=== PATIENT | female | born 1980 | race American Indian/Alaskan Native ===

== ENCOUNTER 2017-06-10 07:08 | Day surgery (SDC) | payer BC, OTHER ==
[2017-06-06 10:54] LABS: Hematocrit 25.9 % (30.3-42.9); Hemoglobin 8.2 gm/dl (10.1-14.3); Mean Corpuscular HGB Conc 32 % (30-34); Platelet Count 302 K/mm3 (140-440); Red Blood Count 4.09 M/mm3 (3.65-5.03); White Blood Count 5.2 K/mm3 (4.5-11.0)
[2017-06-06 11:58] LABS: Mean Corpuscular Hemoglobin 20 pg (28-32); Mean Corpuscular Volume 63 fl (79-97); Red Cell Distribution Width 26.2 % (13.2-15.2)
[2017-06-06 14:02] LABS: Blastocytes % (Manual) 0 %
[2017-06-06 14:04] LABS: Anisocytosis 1+; Hypochromasia 3+; Polychromasia Few; Target Cells Few
[2017-06-06 14:05] LABS: Diff Status Complete; Platelet Estimate Consistent w Auto
--- NOTE | 2017-06-10 08:25 | Short Stay Summary ---
Short Stay Documentation Date of service: 06/10/17 Narrative H&P: C/O: Heavy and irregular cycles 2-3 years 36-year-old G0 is here for D&C. She still continues to have heavy and irregular cycles. She continues to take Provera courses which only helps occasionally. Pelvic ultrasound obtained 04/2017 shows a 9 cm uterus with no structural issues. There is a question of an endometrial polyp noted no other abnormalities. Her cycle in March and lasted 14 days and was heavy. Note her past medical history of admission to [facility] in June 2015. She received 3 units packed red blood cells. Ultrasound showed possible numerous polyps. Gynhx: As above. She has a history of LGSIL with negative high-risk HPV 16 and 18. She scheduled for repeat serology and cytology in one year Medhx:None Sughx:None Meds:M/vitamins ALL:NKDA Fshx:Single, no smoking On exam, she is a morbidly obese Normal ext genitalia SSE no obvious lesions or pathology Minimal bleeding noted at this time A: AUB/IMB & HMB-P P: -Patient and I discussed her sonogram in detail. We reviewed our options, I advised we proceed with D&C hysteroscopy with possible polypectomy using my myosure. We reviewed the risk of the procedure in detail and all her questions were answered. -Proceed to the OR for D&C hysteroscopy once available, she has signed consent - History Past Medical History: other (Severe anemia requiring 3 units PRBC in 06/2015) Past Surgical History: No surgical history Social history: single, full code, no smoking, no alcohol abuse, no prescription drug abuse, no IV drug use - Allergies and Medications Current Medications: Allergies No Known Allergies Allergy (Verified 06/04/17 16:50) Home Medications Medication Instructions Recorded Confirmed Last Taken Type Multivit, Iron, Min #4, FA 1 each PO DAILY #30 tab.chew 07/01/15 06/04/17 Unknown Rx [Multichew Chewable Tablet] medroxyPROGESTERone ACETATE 10 mg PO QDAY #20 tablet 07/01/15 06/04/17 Unknown Rx [Provera] Ferrous Sulfate [Feosol 325 MG tab] 325 mg PO TID 06/04/17 06/04/17 Unknown History - Physical exam General appearance: no acute distress, obese Lungs: Clear to auscultation, Normal air movement Heart: Regular rate, Normal S1, Normal S2 Gastrointestinal: normal, no tenderness, no distended, no masses, no guarding, obese Female Genitourinary: normal Extremities: no ischemia Neurological: Strength at 5/5 X4 ext - Brief post op/procedure progress note Date of procedure: 06/10/17 Pre-op diagnosis: AUB/HMB-P Post-op diagnosis: same Procedure: D&C hysteroscopy with myosure Anesthesia: GETA Findings: Nulliparoes OS, Endometrial polyps Surgeon: JHONATAN ALBERTO Estimated blood loss: minimal Pathology: list (endometrial polyps, endometrial curettings) Specimen disposition: to lab Condition: stable (minimal blood loss, fluid deficit 100 mL) - Hospital course Hospital course: Uncomplicated postoperative course, she is discharged home from PACU - Disposition Condition at discharge: Good Disposition: DC-01 TO HOME OR SELFCARE Short Stay Discharge Plan Activity: advance as tolerated, other (pelvic rest 2 weeks) Weight Bearing Status: Weight Bear as Tolerated Diet: regular Follow up with: PRIMARY MD WILFREDO [Primary Care Provider] - 7 Days JHONATAN ALBERTO MD [Staff Physician] - 7 Days
[2017-06-10] MEDS ORDERED: DILAUDID IV PRN (08:38)
[2017-06-10] MEDS ORDERED: ZOFRAN IV PRN ×3 (08:38→11:49)
--- NOTE | 2017-06-10 08:57 | Anesthesia Consultation ---
Anesthesia Consult and Med Hx Date of service: 06/10/17 - Airway Anesthetic Teeth Evaluation: Good ROM Head & Neck: Adequate Mental/Hyoid Distance: Adequate Mallampati Class: Class II Intubation Access Assessment: Probably Good - Pulmonary Exam CTA: Yes - Cardiac Exam Cardiac Exam: RRR - Pre-Operative Health Status ASA Pre-Surgery Classification: ASA2 Proposed Anesthetic Plan: General - Pulmonary Hx Smoking: No Hx Asthma: No SOB: No COPD: No Hx Pneumonia: No Hx Sleep Apnea: No - Cardiovascular System Hx Hypertension: No Hx Coronary Artery Disease: No Hx Heart Attack/AMI: No Hx Angina: No Hx Percutaneous Transluminal Coronary Angioplasty (PTCA): No Hx Pacemaker: No Hx Internal Defibrillator: No Hx Valvular Heart Disease: No Hx Heart Murmur: No Hx Peripheral Vascular Disease: No - Central Nervous System Hx Back Pain: No Hx Psychiatric Problems: No - Gastrointestinal Hx Ulcer: No - Endocrine Hx Renal Disease: No Hx End Stage Renal Disease: No Hx Cirrhosis: No Hx Liver Disease: No Hx Hypothyroidism: No Hx Hyperthyroidism: No - Hematic Hx Anemia: Yes Hx Sickle Cell Disease: No - Other Systems Hx Alcohol Use: Yes (occas) Hx Substance Use: No Hx Cancer: No Hx Obesity: Yes (BMI > 30)
--- NOTE | 2017-06-10 08:57 | Anesthesia Day of Surgery ---
Anesthesia Day of Surgery - Day of Surgery Patient Examined: Yes Patient H&P Reviewed: Yes Patient is NPO: Yes
[2017-06-10] MEDS ORDERED: PEPCID PO NR (09:00)
[2017-06-10] MEDS ORDERED: VERSED IV NR (09:00)
[2017-06-10] MEDS ORDERED: NACL 0.9% 1000 ML 1,000 ML IV SCH (09:00)
[2017-06-10] MEDS ORDERED: NACL BACTERIOSTATIC INFILTRATI ONE (09:01)
[2017-06-10] MEDS ORDERED: DIPRIVAN 10 MG/ML IV ONE (09:33)
[2017-06-10] MEDS ORDERED: DILAUDID ONE ×2 (09:33→10:19)
[2017-06-10] MEDS ORDERED: XYLOCAINE MPF 2% ONE (09:33)
[2017-06-10] MEDS ORDERED: TORADOL ONE (09:38)
[2017-06-10] MEDS ORDERED: ZOFRAN ONE ×2 (09:38→11:49)
[2017-06-10] MEDS ORDERED: DECADRON ONE (09:38)
[2017-06-10] MEDS ORDERED: SILVER NITRATE TP ONE ×2 (10:22→10:53)
[2017-06-10] MEDS ORDERED: TYLENOL PO PRN (10:47)
[2017-06-10] MEDS ORDERED: NORCO 5/325 PO PRN (10:47)
[2017-06-10] MEDS ORDERED: MOTRIN PO PRN (10:47)
--- NOTE | 2017-06-10 10:47 | Operative Report ---
Operative Report Operative Report: DATE: 06/10/17 PREOPERATIVE DIAGNOSIS: Abnormal uterine bleeding/heavy and irregular menstrual bleeding, Endometrial polyps POSTOP DIAGNOSIS: Same NAME OF PROCEDURE: D&C hysteroscopy with Myosure SURGEON: JHONATAN ALBERTO MD FINAL [employer]SEM[employer]Y [employer] P[employer]ING SUPERVISOR: None ANESTHESIA: LMA EBL: Minimal PATHOLOGY SPECIMEN: Endometrial polyps, endometrial curettings FLUID DEFICIT: 100 mL URINE OUTPUT: 100 mL FINDINGS: Nulliparous os, uterus measures 9 cm, obvious thickening of the endometrium and endometrial polyps noted DESCRIPTION OF PROCEDURE: Procedure in detail patient taken to the operating room where she was prepped and draped in sterile fashion placed in dorsolithotomy position. A speculum was placed in the vagina and single-tooth was used to grab the anterior lip of the uterus, uterus was serially dilated to a max 31 dilators. Uterus was then sounded to 9 cm. Myosure hysteroscopy device was then advanced into the patient's uterus under direct visualization. All quadrants serially sampled and polyps removed with Myosure device. Pictures were taken and instrument was then withdrawn from the patient's uterus. Using a sharp curet, all 4 quadrants were then sampled with remnant tissue removed. All instruments were then withdrawn from the patient's vagina, She tolerated the procedure well and instrument counts were correct 2 she is transferred to PACU in stable condition thank you
[2017-06-10] MEDS ORDERED: NACL 0.9% IR ONE ×2 (10:53)
--- NOTE | 2017-06-10 11:28 | Post Anesthesia Evaluation ---
- Post Anesthesia Evaluation Patient Participated: Yes Airway Patent: Yes Stable Respiratory Function: Yes Nausea/Vomiting: No Temp > 96.8F: Yes Pain Manageable: Yes Adequeate Hydration: Yes Anesthesia Complications: No Block Receding Appropriately: Not Applicable Patient on Ventilator: No
[2017-06-10] MEDS ORDERED: REGLAN IV ONE (12:48)
[2017-06-10] MEDS ORDERED: PHENERGAN PO ONE (13:25)
[2017-06-10] MEDS ORDERED: TRANSDERM-SCOP TD ONE (13:25)
[2017-06-10 15:51] VITALS: BP 111/61
== END 2017-06-10 14:10 | disposition home or self-care (01) ==
LOC: OR 07:08
PROVIDERS: ATTEND Obstetrics & Gynecology Gynecology
DX: N84.0 Polyp of corpus uteri (principal); D64.9 Anemia, unspecified; E66.01 Morbid (severe) obesity due to excess calories; Z68.38 Body mass index [BMI] 38.0-38.9, adult; Z72.89 Other problems related to lifestyle; Z79.899 Other long term (current) drug therapy
CPT/HCPCS: 36415; 58558; 84703; 85007; 85025; 86850; 86900; 86901; 88305; A4217; C1782; J1100; J1170; J1885; J2250; J2405; J2704; J2765; J7030; Q0169